=== PATIENT | male | born 1985 | race Two or more races ===

== ENCOUNTER 2024-03-13 10:37 | Emergency (ER) | payer OTHER, SELFPAY ==
[2024-03-13 10:42] VITALS: BP 142/86; PULSE 83; TEMP 36.6; O2SAT 99; BMI 28.5
--- NOTE | 2024-03-13 11:05 | XR_ITS ---
The [address] [address] Patient Name: EFRAIN FIERRO MRN: [id number] date: 1985 Sex: M Assigned Patient Location: ER Current Patient Location: Accession/Order Number: [id number] Exam Date: 03/13/2024 10:57 Report Date: 03/13/2024 11:38 At the request of: DARIUS MUSE Procedure: XR hand RT min 3V PROCEDURE: XR hand RT min 3V HISTORY: injury, possible foreign body COMPARISON: None. FINDINGS: BONES:Collection of tiny calcifications or possibly metallic foreign bodies overlying the proximal aspect of the palm of the hand. The skin surface marker localizing the site of puncture wound overlies the proximal wrist with no appreciable foreign body. SOFT TISSUES:No visible soft tissue swelling. EFFUSION:None visible. OTHER: Negative. XR/XR hand RT min 3V IMPRESSION: 1. No acute bone abnormality. 2. No appreciable foreign bodies overlying the risks as localized by the skin surface marker. 2. Suspect calcifications within the palm of the hand soft tissues or on the skin surface. Electronically authenticated by: PATTI WETZEL Date: 03/13/2024 11:38
--- NOTE | 2024-03-13 11:05 | ED.WOUNDLAC1 ---
HPI - Wound/Laceration General Chief Complaint: Wound/Laceration Stated Complaint: RIGHT HAND PAIN Time Seen by Provider: 03/13/24 11:05 Source: patient and family Mode of arrival: walk-in Limitations: no limitations History of Present Illness HPI narrative: This patient is here for evaluation of a puncture wound to his right hand. The injury was occurred yesterday. He says there is a piece of metal coming off the ceiling and he punctured his area just proximal to the proximal wrist crease. It is in line with the ring finger. He has no difficulty flexing extending the digits and the hand and the wrist area. There is no purulent drainage or discharge he is not running a fever. He has no tingling or numbness. He does not think anything broke off in the wound but we will get an x-ray. He also needs an update of his tetanus. Because the nature of the wound I will start him on empiric antibiotic therapy. Related Data Allergies Allergy/AdvReac Type Severity Reaction Status Date / Time No Known Drug Allergies Allergy Verified 03/13/24 10:42 [facility] Medical History (Updated 03/13/24 @ 11:08 by Tyler Mohr MD) No pertinent past medical history ?Z78.9 - Other specified health status (ICD-10) Surgical History (Updated 03/13/24 @ 10:49 by Yoel Zamarripa) No pertinent past surgical history ?Z78.9 - Other specified health status (ICD-10) Exam Narrative Exam Narrative: Pleasant awake and alert has a tiny puncture wound just proximal to the proximal wrist crease on the ulnar aspect of the palmaris longus tendon. He has full range of motion of the digits with no tingling or numbness there is no hematoma there is no tenderness or evidence of cellulitis or infectious process at this time. X-rays were done and did not show any foreign body in this area. Constitutional Vital Signs, click to edit/add: Last Vital Signs Temp 97.9 F 03/13/24 10:42 Pulse 83 03/13/24 10:42 Resp 16 03/13/24 10:42 BP 142/86 H 03/13/24 10:42 Pulse Ox 99 03/13/24 10:42 O2 Del Method Room Air 03/13/24 10:42 Course Vital Signs Vital signs: Vital Signs Temperature 97.9 F 03/13/24 10:42 Pulse Rate 83 03/13/24 10:42 Respiratory Rate 16 03/13/24 10:42 Blood Pressure 142/86 H 03/13/24 10:42 Pulse Oximetry 99 03/13/24 10:42 Oxygen Delivery Method Room Air 03/13/24 10:42 Temperature 97.9 F 03/13/24 10:42 Pulse Rate 83 03/13/24 10:42 Respiratory Rate 16 03/13/24 10:42 Blood Pressure 142/86 H 03/13/24 10:42 Pulse Oximetry 99 03/13/24 10:42 Oxygen Delivery Method Room Air 03/13/24 10:42 MDM - Wound/Laceration MDM Narrative Medical decision making narrative: Patient has a puncture wound is approximately 24 hours old with an old piece of metal. No foreign body was noted no obvious evidence of infection but because the nature of the injury I will place him on cephalexin for 7 days tetanus will be updated Discharge Plan Discharge Stand Alone Forms: Portal Instructions Chief Complaint: Wound/Laceration Clinical Impression: Puncture wound of hand, right Patient Disposition: Home, Self-Care Time of Disposition Decision: 11:07 Print Language: Kittitian Additional Instructions: Cephalexin, return for evidence of infection as discussed Referrals: Physician,Non-Staff, MD [Primary Care Provider] - 1 week
[2024-03-13] MEDS: ADACEL DIPH,PERTUSS(ACELL),TET VAC/PF 0.5 ML ADULT SYRINGE IM (11:22)
[2024-03-13] MEDS: CEPHALEXIN 500 MG CAPSULE PO (11:22)
[2024-03-13 11:30] VITALS: BP 132/82; PULSE 82; O2SAT 100
--- NOTE | 2024-03-13 14:25 | PC.NURSE ---
patient script called into [facility] pharmacy, cephalexin 500mg bid for 7 days.
== END 2024-03-13 11:31 | disposition home or self-care (01) ==
PROVIDERS: Emergency Provider Emergency Medicine Emergency Medical Services
DX: S61.431A Puncture wound without foreign body of right hand, initial encounter (principal); W45.8XXA Other foreign body or object entering through skin, initial encounter; Z23 Encounter for immunization
CPT/HCPCS: 73130; 90471; 90715; 99284

== ENCOUNTER 2024-12-16 11:19 | Emergency (ER) | payer SELFPAY ==
[2024-12-16 11:23] VITALS: BP 162/96; PULSE 84; TEMP 37.1; O2SAT 98
--- OUTSIDE RECORDS SUMMARY | 2024-12-16 11:28 | XMS_ITS | CCD ---
Author Organization [facility] Informat ion Partnership [facility] Care Team Providers Care Adult School Teacher Name Role Phone MAXIMO JOHN Attending Unavailable YOLIS SANCHEZ Referring Unavailable YOLIS SANCHEZ Primary Care Unavailable Problems Problem Classification Problem Date Documented Da te Episodic/Chronic Heart valve disorders (1 source) Benign and innocent cardiac murmurs; Translations: [Benign and innocent cardiac murmurs] Onset: 01-06-2024 Episodic Nonspecific chest pain (1 source) Other chest pain; Translations: [Other chest pain] Onset: 07-20-2023 Episodic Sprains and strains (1 source) Strain of unspecified muscle, fascia and tendon at shoulder and upper arm level, left arm, initial encounter; Translations: [Strain of unspecified muscle, fascia and tendon at shoulder and upper arm level, left arm, initial encounter] Onset: 07-20-2023 Episodic Encounters Encounter Date Encounter Type Care Provider Facility Start: 01-06-2024 End: 01-09-2024 ambulatory YOLIS [facility] Start: 07-20-2023 End: 07-20-2023 Emergency department patient visit MAXIMO JOHN [facility] Payers Date Payer Category Payer Private Health Insurance [id number] 1985 Unknown [id number] Summary Purpose Family History No Family History Records FoundNo Family History Records Found Advance Directives No Advanced Directives Records FoundNo Advanced Directives Records Found Additional Source Comments (unrecognized sect ion and content) No Status Records FoundNo Status Records Found INFORMATION SOURCE (unrecogn ized section and content) DATE CREATED AUTHOR 07/22/2023 [facility] DATE CREATED AUTHOR AUTHOR'S ORGANIZ ATION [facility]DS PERTAINING TO PATIENTS WHO ARE OR HAVE BEEN ENROLLED IN A CHEMICAL DEPENDENCY/SUBSTANCEABUSE PROGRAM, SOME INFORMATION MAY BE OMITTED. This clinical summary was aggregated from multiple sources. Caution should be exercised in using it in the provision of clinical care. This summary normalizes information from multiple sources, and as a consequence, information in this document may materially change the coding, format and clinical context of patient data. In addition, data may be omitted in some cases. CLINICAL DECISIONS SHOULD BE BASED ON THE PRIMARY CLINICAL RECORDS. [facility] [employer] [facility]. provides no warranty or guarantee of the accuracy or completeness of information in this document.
--- NOTE | 2024-12-16 11:29 | PC.NURSE ---
pt presents with rash to right face, left ribs, bilateral arms and bilateral legs
--- NOTE | 2024-12-16 11:32 | ED.SKABFB1 ---
HPI - Skin/Abscess/Foreign Bdy General Chief complaint: Skin/Abscess/Foreign Body Stated complaint: rash Time Seen by Provider: 12/16/24 11:22 Source: patient Mode of arrival: walk-in History of Present Illness HPI narrative: 39-year-old male presents for rash which she thinks is poison maria victoria. He was cutting some wood 3 days ago and the rash started 2 days ago. It is the right side of his face and to a much lesser degree his arms. He has a small area on his chest as well it has been pruritic and he has been using calamine lotion. Related Data Previous Rx's ?Medication ?Instructions ?Recorded prednisone 10 mg tablet See Rx Instructions .Route 12/16/24 .COMPLEX #30 tabs Allergies Allergy/AdvReac Type Severity Reaction Status Date / Time No Known Drug Allergies Allergy Verified 03/13/24 10:42 Review of Systems ROS Narrative A ten point review of systems is negative except as noted above. PFSH PFS Medical History (Updated 12/16/24 @ 11:32 by Miller Briceño MD) No pertinent past medical history ?Z78.9 - Other specified health status (ICD-10) Surgical History (Updated 03/13/24 @ 10:49 by Yoel Zamarripa) No pertinent past surgical history ?Z78.9 - Other specified health status (ICD-10) Exam Narrative Exam Narrative: Nurses note and vital signs reviewed and patient is not hypoxic. General: The patient appears well and in no apparent distress. Patient is resting comfortably on cart. Skin: Warm, dry, no pallor noted. There is erythematous rash noted, linear in places, mostly on the right side of his face. To a much lesser degree its on his chest and both arms Head: Normocephalic, atraumatic Eye: Normal conjunctiva, no drainage Ears, Nose, Mouth, and Throat: oral mucosa is moist. Nares patent. Cardiovascular: Regular Rate and Rhythm Respiratory: Patient is in no distress, no accessory muscle use, lungs are clear to auscultation, no wheezing, rales or rhonchi Back: non-tender GI: Soft and nontender Musculoskeletal: No joint swelling Neurological: A&O, normal speech Psychiatric: Cooperative Constitutional Vital Signs, click to edit/add: Last Vital Signs Temp 98.7 F 12/16/24 11:23 Pulse 84 12/16/24 11:23 Resp 16 12/16/24 11:23 BP 162/96 H 12/16/24 11:23 Pulse Ox 98 12/16/24 11:23 O2 Del Method Room Air 12/16/24 11:23 Course Vital Signs Vital signs: Vital Signs Temperature 98.7 F 12/16/24 11:23 Pulse Rate 84 12/16/24 11:23 Respiratory Rate 16 12/16/24 11:23 Blood Pressure 162/96 H 12/16/24 11:23 Pulse Oximetry 98 12/16/24 11:23 Oxygen Delivery Method Room Air 12/16/24 11:23 Temperature 98.7 F 12/16/24 11:23 Pulse Rate 84 12/16/24 11:23 Respiratory Rate 16 12/16/24 11:23 Blood Pressure 162/96 H 12/16/24 11:23 Pulse Oximetry 98 12/16/24 11:23 Oxygen Delivery Method Room Air 12/16/24 11:23 MDM - Skin/Abscess/Foreign Bdy MDM Narrative Medical decision making narrative: My clinical impression is that he has poison maria victoria dermatitis. He is given IM Solu-Medrol and prescribed prednisone. Treatment diagnosis and follow-up were discussed with the patient. Differential Diagnosis Differential diagnosis: Likely dermatophytosis, urticaria, cellulitis, insect bites and contact dermatitis Discharge Plan Discharge Chief Complaint: Skin/Abscess/Foreign Body Clinical Impression: Poison maria victoria dermatitis Patient Disposition: Home, Self-Care Time of Disposition Decision: 11:32 Condition: Good Mode of Transportation: Private Vehicle Prescriptions / Home Meds: New prednisone 10 mg tablet See Rx Instructions .ROUTE .COMPLEX Qty: 30 0RF Rx Instructions: 4 by mouth daily for three days then 3 by mouth daily for three days then 2 by mouth daily for three days then 1 by mouth daily for three days Print Language: Armenian Instructions: Poison Maria Victoria (ED) Referrals: Physician,Non-Staff, MD [Primary Care Provider] - 1 week
[2024-12-16] MEDS: METHYLPREDNISOLONE SOD SUCC PF 125 MG/2 ML VIAL IM (11:37)
== END 2024-12-16 11:47 | disposition home or self-care (01) ==
PROVIDERS: Emergency Provider Emergency Medicine
DX: L23.7 Allergic contact dermatitis due to plants, except food (principal)
CPT/HCPCS: 96372; 99284; J2919